=== PATIENT | female | born 1970 | race Caucasian/White ===

== ENCOUNTER → 2018-08-24 | Outpatient (CLI) | payer BC ==
--- NOTE | 2018-08-24 10:04 | CARD ---
MR#: [id number] Date of Study: 08/24/2018 Ordering Physician: NASIM VOGT, Referring Physician: NASIM VOGT, Tech: Lore Kraus APPROVED REPORT EXAM: Two-dimensional and M-mode echocardiogram with Doppler and color Doppler. Other Information Quality : AverageHR: 67bpm INDICATION Arrhythmia RISK FACTORS Hyperlipidemia 2D DIMENSIONS RVDd3.1 (2.9-3.5cm)Left Atrium(2D)3.6 (1.6-4.0cm) IVSd1.0 (0.7-1.1cm)Aortic Root(2D)3.2 (2.0-3.7cm) LVDd4.8 (3.9-5.9cm)LVOT Diameter2.2 (1.8-2.4cm) PWd0.9 (0.7-1.1cm)LVDs3.2 (2.5-4.0cm) FS (%) 33.2 %SV67.8 ml LVEF(%)61.6 (>50%) Aortic Valve AoV Peak Mike.121.0cm/sAoV VTI27.8cm AO Peak GR.5.9mmHgLVOT Peak Mike.95.3cm/s LVOT VTI 21.25cmAO Mean GR.3mmHg BARBI (VMAX)3.52qn0TCN (VTI)3.03cm2 Mitral Valve MV E Bpayrvbn61.1cm/sMV DECEL NFQD295zl MV A Ayjvzbku95.1cm/sE/A Ratio1.3 Pulmonary Valve PV Peak Cwgrnaml24.2cm/sPV Peak Grad.3mmHg Tricuspid Valve TR P. Egunyays144wl/sRAP OCTPCBYE9gaDq TR Peak Gr.84gqDvVYOQ82orOr Pulmonary Vein S1 Sonfxqjz65.7cm/sD2 Vwdfqdpf79.8cm/s LEFT VENTRICLE The left ventricle is normal size. There is normal left ventricular wall thickness. The left ventricu lar systolic function is normal and the ejection fraction is within normal range. The Ejection Fracti on is 50-55%. There is normal LV segmental wall motion. The left ventricular diastolic function and f illing is normal for age. RIGHT VENTRICLE The right ventricle is normal size. There is normal right ventricular wall thickness. The right ventr icular systolic function is normal. ATRIA The left atrium size is normal. The right atrium size is normal. 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 No obvious left to right shunt noted. AORTIC VALVE The aortic valve is normal in structure and function. Doppler and Color Flow revealed no significant aortic regurgitation. There is no significant aortic valvular stenosis. MITRAL VALVE The mitral valve is normal in structure and function. There is no evidence of mitral valve prolapse. There is no mitral valve stenosis. Doppler and Color-flow revealed trace mitral regurgitation. TRICUSPID VALVE The tricuspid valve is normal in structure and function. Doppler and Color Flow revealed trace tricus pid regurgitation. There is no tricuspid valve stenosis. PULMONIC VALVE The pulmonary valve is normal in structure and function. Doppler and Color Flow revealed trace pulmon ic valvular regurgitation. There is no pulmonic valvular stenosis. GREAT VESSELS The aortic root is normal in size. The IVC is normal in size and collapses >50% with inspiration. PERICARDIAL EFFUSION There is no evidence of significant pericardial effusion. Critical Notification Critical Value: No <Conclusion> The left ventricular systolic function is normal and the ejection fraction is within normal range. Th e Ejection Fraction is 50-55%. 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 No obvious left to right shunt noted. Signed by : Nasim Vogt, Electronically Approved : 08/24/2018 10:03:54
== END | disposition home or self-care (01) ==
LOC: ECHO 07:43
PROVIDERS: ATTEND Internal Medicine Cardiovascular Disease
DX: Q21.1 Atrial septal defect (principal); I49.1 Atrial premature depolarization; E78.5 Hyperlipidemia, unspecified
CPT/HCPCS: 93306